=== PATIENT | female | born 1990 | race African-American/Black ===

== ENCOUNTER 2017-01-04 01:13 | Inpatient (IN) | payer MEDICAID ==
[2017-01-04] VITALS (8 sets, daily range): BP systolic 127–172; BP diastolic 84–118
[~2017-01-04] VITALS: Ht 157.5 cm; Wt 56.0 kg
[~2017-01-04 01:13] MED LIST: HUMALOG100 U/ML SC; LANTUS SOLOS100 U/M1 SQ; METOCLOPRAMIDE5 M1 PO; NEURONTIN400 MG PO; OMEPRAZOLE DR20 M1 PO; TRAZODONE HYDR100 MG PO
[2017-01-04 01:44] LABS: microscopic required? NO
[2017-01-04 01:54] LABS: BASOPHIL % 0.5 % (0-2); PLATELET COUNT 365 x10^3mcL (130-400); RED CELL DISTRIBUTION WIDTH 14.4 % (11.5-14.5)
[2017-01-04 02:02] LABS: UA SPECIFIC GRAVITY <=1.005 (1.005-1.035); urine erythrocyte NEGATIVE (NEGATIVE)
[2017-01-04 02:11] LABS: ALBUMIN 3.9 g/dL (3.4-5.0); BILIRUBIN TOTAL 0.77 mg/dL (0.20-1.00); CARBON DIOXIDE 17.3 mmol/L (21-32); CREATININE SERUM 1.6 mg/dL (0.6-1.0); POTASSIUM SERUM 4.6 mmol/L (3.5-5.1); TOTAL PROTEIN, SERUM 7.5 g/dL (6.4-8.2)
[2017-01-04] MEDS ORDERED: LISINOPRIL10 MG PO (02:55)
[2017-01-04 04:31] LABS: CHOLESTEROL/HDL RATIO 3.1
[2017-01-04 04:33] LABS: AMPHETAMINE QUAL UR POSITIVE (NEG <=1000)
[2017-01-04 04:42] LABS: FREE T4 1.08 ng/dL (0.76-1.46); FREE THYROXINE INDEX 3.3 ug/dL (1.4-4.5); T4(THYROXINE) 8.8 ug/dL (4.7-13.3)
[2017-01-04 08:59] LABS: CALCIUM 8.1 mg/dL (8.5-10.1); CARBON DIOXIDE 26.1 mmol/L (21-32); CHLORIDE SERUM 104 mmol/L (98-107); CREATININE SERUM 0.8 mg/dL (0.6-1.0); GFR1 > 60 mL/min; GLUCOSE SERUM 141 mg/dL (74-106); MAGNESIUM 1.9 mg/dL (1.8-2.4); PHOSPHOROUS 2.8 mg/dL (2.5-4.9); SODIUM SERUM 138 mmol/L (136-145)
[2017-01-04 09:01] LABS: POTASSIUM SERUM 2.7 mmol/L (3.5-5.1)
[2017-01-04 10:30] LABS: T3 TOTAL 0.76 ng/mL
[2017-01-04 12:29] LABS: CALCIUM 7.8 mg/dL (8.5-10.1); CARBON DIOXIDE 26.8 mmol/L (21-32); CHLORIDE SERUM 104 mmol/L (98-107); CREATININE SERUM 0.7 mg/dL (0.6-1.0); GFR1 > 60 mL/min; GLUCOSE SERUM 133 mg/dL (74-106); MAGNESIUM 1.7 mg/dL (1.8-2.4); PHOSPHOROUS 2.6 mg/dL (2.5-4.9); POTASSIUM SERUM 3.3 mmol/L (3.5-5.1); SODIUM SERUM 137 mmol/L (136-145)
[2017-01-04 16:43] LABS: CARBON DIOXIDE 25.7 mmol/L (21-32); CHLORIDE SERUM 103 mmol/L (98-107); CREATININE SERUM 0.7 mg/dL (0.6-1.0); GFR1 > 60 mL/min; GLUCOSE SERUM 326 mg/dL (74-106); MAGNESIUM 1.6 mg/dL (1.8-2.4); PHOSPHOROUS 2.9 mg/dL (2.5-4.9); POTASSIUM SERUM 3.5 mmol/L (3.5-5.1); SODIUM SERUM 137 mmol/L (136-145)
[2017-01-04 21:06] LABS: CALCIUM 8.3 mg/dL (8.5-10.1); CARBON DIOXIDE 26.5 mmol/L (21-32); CHLORIDE SERUM 104 mmol/L (98-107); CREATININE SERUM 0.9 mg/dL (0.6-1.0); GFR1 > 60 mL/min; GLUCOSE SERUM 201 mg/dL (74-106); MAGNESIUM 1.5 mg/dL (1.8-2.4); PHOSPHOROUS 1.9 mg/dL (2.5-4.9); POTASSIUM SERUM 3.3 mmol/L (3.5-5.1); SODIUM SERUM 139 mmol/L (136-145)
[2017-01-05] VITALS (7 sets, daily range): BP systolic 118–154; BP diastolic 76–107
[2017-01-05 04:45] LABS: BASOPHIL % 0.6 % (0-2); PLATELET COUNT 302 x10^3mcL (130-400); RED CELL DISTRIBUTION WIDTH 14.5 % (11.5-14.5)
[2017-01-05 05:06] LABS: CALCIUM 8.3 mg/dL (8.5-10.1); CARBON DIOXIDE 23.3 mmol/L (21-32); CHLORIDE SERUM 101 mmol/L (98-107); CREATININE SERUM 0.9 mg/dL (0.6-1.0); GFR1 > 60 mL/min; MAGNESIUM 2.1 mg/dL (1.8-2.4); PHOSPHOROUS 3.2 mg/dL (2.5-4.9); SODIUM SERUM 134 mmol/L (136-145)
[2017-01-05 05:07] LABS: GLUCOSE SERUM 531 mg/dL (74-106)
[2017-01-06 06:12] VITALS: BP 147/92
[2017-01-06 09:55] VITALS: BP 150/108
[2017-01-06 13:33] VITALS: BP 146/103
[2017-01-06 17:01] VITALS: BP 151/110
[2017-01-06 21:12] VITALS: BP 135/95
[2017-01-07 06:18] LABS: CALCIUM 8.6 mg/dL (8.5-10.1); CARBON DIOXIDE 27.4 mmol/L (21-32); CHLORIDE SERUM 105 mmol/L (98-107); CREATININE SERUM 0.7 mg/dL (0.6-1.0); GFR1 > 60 mL/min; GLUCOSE SERUM 229 mg/dL (74-106); MAGNESIUM 1.7 mg/dL (1.8-2.4); POTASSIUM SERUM 3.8 mmol/L (3.5-5.1); SODIUM SERUM 142 mmol/L (136-145)
[2017-01-07 06:32] LABS: BASOPHIL % 0.3 % (0-2); PLATELET COUNT 323 x10^3mcL (130-400); RED CELL DISTRIBUTION WIDTH 14.5 % (11.5-14.5)
[2017-01-07 08:03] VITALS: BP 149/102
[2017-01-07 13:34] VITALS: BP 138/102
[2017-01-07 17:34] VITALS: BP 140/95
[2017-01-07 21:37] VITALS: BP 136/90
[2017-01-07 21:39] VITALS: BP 122/88
[2017-01-08 05:34] VITALS: BP 149/96
[2017-01-08 06:32] LABS: BASOPHIL % 0.5 % (0-2); PLATELET COUNT 385 x10^3mcL (130-400)
[2017-01-08 06:46] LABS: RED CELL DISTRIBUTION WIDTH 14.8 % (11.5-14.5)
[2017-01-08 06:52] LABS: CALCIUM 8.7 mg/dL (8.5-10.1); CARBON DIOXIDE 28.2 mmol/L (21-32); CHLORIDE SERUM 101 mmol/L (98-107); CREATININE SERUM 0.8 mg/dL (0.6-1.0); GFR1 > 60 mL/min; GLUCOSE SERUM 290 mg/dL (74-106); MAGNESIUM 1.9 mg/dL (1.8-2.4); PHOSPHOROUS 4.4 mg/dL (2.5-4.9); POTASSIUM SERUM 4.8 mmol/L (3.5-5.1); SODIUM SERUM 137 mmol/L (136-145)
[2017-01-08 09:57] VITALS: BP 125/92
[2017-01-08 14:22] VITALS: BP 143/102
[2017-01-08 16:41] VITALS: BP 133/92
[2017-01-08 21:11] VITALS: BP 163/113
[2017-01-09 05:50] VITALS: BP 133/82
[2017-01-09 07:28] LABS: BASOPHIL % 0.5 % (0-2)
[2017-01-09 07:38] LABS: CALCIUM 8.7 mg/dL (8.5-10.1); CHLORIDE SERUM 102 mmol/L (98-107); CREATININE SERUM 0.8 mg/dL (0.6-1.0); GFR1 > 60 mL/min; GLUCOSE SERUM 258 mg/dL (74-106); POTASSIUM SERUM 4.9 mmol/L (3.5-5.1); SODIUM SERUM 136 mmol/L (136-145)
[2017-01-09 07:40] LABS: PLATELET COUNT 410 x10^3mcL (130-400); RED CELL DISTRIBUTION WIDTH 14.8 % (11.5-14.5)
[2017-01-09 07:55] VITALS: BP 123/65
[2017-01-09 09:05] VITALS: BP 133/82
[2017-01-09 10:18] VITALS: BP 123/85
[2017-01-09 10:37] VITALS: BP 123/85
[2017-01-09] MEDS ORDERED: LEVEMIR100 U/M1 SQ (10:57)
[2017-01-09] MEDS ORDERED: SEROQUEL50 M1 PO (13:42)
== END 2017-01-09 12:06 | disposition home or self-care (01) | DRG 420 ==
LOC: ED 01:13 → IC 02:43 → DU 02:43 → IC 04:01 → DU 01-05 10:03 → MU 01-07 16:08
PROVIDERS: Emergency Medicine; Family Medicine; ADMIT Family Medicine
PROC: 05HM33Z Insertion of Infusion Device into Right Internal Jugular Vein, Percutaneous Approach (ICD-10-PCS; principal; 2017-01-04)
PROC: B543ZZA Ultrasonography of Right Jugular Veins, Guidance (ICD-10-PCS; 2017-01-04)
DX: E10.10 Type 1 diabetes mellitus with ketoacidosis without coma (principal); J96.00 Acute respiratory failure, unspecified whether with hypoxia or hypercapnia; N17.0 Acute kidney failure with tubular necrosis; E44.0 Moderate protein-calorie malnutrition; D68.69 Other thrombophilia; J45.901 Unspecified asthma with (acute) exacerbation; E87.8 Other disorders of electrolyte and fluid balance, not elsewhere classified; E87.1 Hypo-osmolality and hyponatremia; F15.10 Other stimulant abuse, uncomplicated; E83.42 Hypomagnesemia; K21.9 Gastro-esophageal reflux disease without esophagitis; F31.30 Bipolar disorder, current episode depressed, mild or moderate severity, unspecified; I16.0 Hypertensive urgency; E78.1 Pure hyperglyceridemia; F17.210 Nicotine dependence, cigarettes, uncomplicated; F40.01 Agoraphobia with panic disorder; F12.10 Cannabis abuse, uncomplicated; Z79.4 Long term (current) use of insulin; Z68.22 Body mass index [BMI] 22.0-22.9, adult; Z91.14 Patient's other noncompliance with medication regimen
CPT/HCPCS: 36556; 36600; 80307; 82962; 83880; 84439; 94150; J0360; J1170; J1642; J1815; J1885; J2060; J2270; J2765; J3475; J3480; J3490; J7030; J7040; J7620; J7633; Q0092